=== PATIENT | male | born 1970 | race Caucasian/White ===

== ENCOUNTER 2016-10-29 22:23 | Inpatient (IN) | payer OTHER ==
[~2016-10-29] VITALS: Ht 172.7 cm; Wt 113.0 kg
[2016-10-29 23:45] LABS: EOSINOPHIL (%) 1.8 % (0-5); EOSINOPHIL COUNT 0.2 K/uL (0-0.3); IMMATURE GRANULOCYTE (%) 0.4 % (0.0-0.7); INSTRUMENT ABS NEUTROPHIL CT 6.2 K/uL; LYMPHOCYTE COUNT 2.4 K/uL (1.0-2.8); MCH 29.8 PG (29.0-34.0); MCV 87.6 FL (86-99); MEAN PLAT.VOLUME 10.4 uM^3 (9.0-12.4); MONOCYTE (%) 8.5 % (3-12); MONOCYTE COUNT 0.8 K/uL (0-0.8); NEUTROPHIL (%) 64.2 % (45-76); NEUTROPHIL COUNT 6.2 K/uL (1.8-6.4); PLATELET COUNT 274 K/uL (156-360); RBC DIS.WIDTH-CV 13.5 % (11.8-14.6); RED BLOOD COUNT 5.71 M/uL (4.00-5.50); WHITE BLOOD COUNT 9.7 K/uL (4.1-10.2)
[2016-10-29] MEDS ORDERED: LISINOPRIL10 MG PO (23:46)
[2016-10-29] MEDS ORDERED: ASPIRIN325 MG PO (23:47)
[2016-10-29] MEDS ORDERED: TOPAMAX200 MG PO (23:47)
[2016-10-29 23:54] LABS: CHLORIDE 105 mEq/L (99-109); POTASSIUM 4.1 mEq/L (3.7-5.4); SODIUM 137 mEq/L (136-147)
[2016-10-29 23:55] LABS: GLUCOSE 113 mg/dL (70-99)
[2016-10-29 23:56] LABS: INTER. NORMALIZED RATIO 1.1; PROTHROMBIN TIME 10.7 (9.2-11.2); PTT 28.2 (25-32)
[2016-10-29 23:57] LABS: ANION GAP 10 MEQ/L (2-14)
[2016-10-30] LABS: UREA NITROGEN (BUN) 18 mg/dL (9-23)
[2016-10-30 00:04] LABS: GFR ESTIMATE (CALCULATED) > 59 mL/min/
[2016-10-30] MEDS ORDERED: LITE COAT ASPI325 M1 PO (01:18)
[2016-10-30] MEDS ORDERED: B COMPLETE1 EACH PO (01:18)
[2016-10-30 02:56] LABS: TOTAL BILIRUBIN 0.8 mg/dL (0.0-1.0)
[2016-10-30 02:57] LABS: ALKALINE PHOSPHATASE 57 IU/L (3-129)
[2016-10-30 03:00] LABS: DIRECT BILIRUBIN 0.3 mg/dL (0.0-0.3)
[2016-10-30 03:01] LABS: CREATINE KINASE 109 IU/L (1-294)
[2016-10-30 03:19] LABS: ERTH.SED.RATE 22 MM/HR (0-15)
[2016-10-30 04:59] LABS: C-REACTIVE PROTEIN 25.5 MG/L (0-10); SAMPLE HEMOLYSIS CHECK 0; SAMPLE ICTERIC CHECK 0; SAMPLE LIPEMIA CHECK 0
[2016-10-30 05:20] VITALS: BP 148/74
[2016-10-30 07:52] VITALS: BP 132/79
[2016-10-30 12:48] LABS: HEMATOCRIT 46.5 % (38.0-50.0); MCH 29.4 PG (29.0-34.0); MCHC 33.1 G/DL (30.0-36.0); MCV 88.9 FL (86-99); MEAN PLAT.VOLUME 10.7 uM^3 (9.0-12.4); PLATELET COUNT 289 K/uL (156-360); RBC DIS.WIDTH-CV 13.4 % (11.8-14.6); RBC DIS.WIDTH-SD 43.7 % (39-53); RED BLOOD COUNT 5.23 M/uL (4.00-5.50); WHITE BLOOD COUNT 7.9 K/uL (4.1-10.2)
[2016-10-30 15:50] VITALS: BP 122/72
[2016-10-30 19:35] VITALS: BP 132/69
[2016-10-30 23:15] VITALS: BP 136/62
[2016-10-31 04:25] VITALS: BP 111/72
[2016-10-31 07:30] LABS: EOSINOPHIL (%) 5.8 % (0-5); EOSINOPHIL COUNT 0.5 K/uL (0-0.3); HEMATOCRIT 45.7 % (38.0-50.0); IMMATURE GRANULOCYTE (%) 0.1 % (0.0-0.7); INSTRUMENT ABS NEUTROPHIL CT 4.6 K/uL; LYMPHOCYTE COUNT 2.5 K/uL (1.0-2.8); MCH 30.7 PG (29.0-34.0); MCHC 34.1 G/DL (30.0-36.0); MONOCYTE COUNT 0.8 K/uL (0-0.8); NEUTROPHIL (%) 54.6 % (45-76); NEUTROPHIL COUNT 4.6 K/uL (1.8-6.4); PLATELET COUNT 269 K/uL (156-360); RBC DIS.WIDTH-CV 13.4 % (11.8-14.6); RBC DIS.WIDTH-SD 44.1 % (39-53); RED BLOOD COUNT 5.08 M/uL (4.00-5.50); WHITE BLOOD COUNT 8.4 K/uL (4.1-10.2)
[2016-10-31 08:00] VITALS: BP 122/78
[2016-10-31 08:00] LABS: ANION GAP 9 MEQ/L (2-14); CHLORIDE 101 MEQ/L (99-109); GFR ESTIMATE (CALCULATED) > 59 mL/min/; GLUCOSE 91 mg/dL (70-99); POTASSIUM 4.3 MEQ/L (3.7-5.4); SAMPLE HEMOLYSIS CHECK 0; SAMPLE ICTERIC CHECK 0; SAMPLE LIPEMIA CHECK 0; SODIUM 136 MEQ/L (136-147); UREA NITROGEN (BUN) 19 mg/dL (9-23)
[2016-10-31 18:05] VITALS: BP 123/59
[2016-11-01 00:40] VITALS: BP 125/68
[2016-11-01 08:00] VITALS: BP 123/72
[2016-11-01] MEDS ORDERED: KEFLEX500 MG PO (09:15)
[2016-11-01] MEDS ORDERED: XARELTO20 MG PO (09:15)
[2016-11-01] MEDS ORDERED: XARELTO15 MG PO (09:15)
[2016-11-01] MEDS ORDERED: HYDROCODON-ACE1 EAC9 PO (09:15)
== END 2016-11-01 14:34 | disposition home or self-care (01) | DRG 300 ==
LOC: EME 22:23 → 5EAST 10-30 02:17 → EDOF 10-30 02:17 → 5EAST 10-30 05:09
PROVIDERS: Emergency Medicine; Hospitalist
DX: I82.4Z1 Acute embolism and thrombosis of unspecified deep veins of right distal lower extremity (principal); L03.115 Cellulitis of right lower limb; S92.214D Nondisplaced fracture of cuboid bone of right foot, subsequent encounter for fracture with routine healing; S92.001D Unspecified fracture of right calcaneus, subsequent encounter for fracture with routine healing; M72.2 Plantar fascial fibromatosis; S96.911D Strain of unspecified muscle and tendon at ankle and foot level, right foot, subsequent encounter; M77.31 Calcaneal spur, right foot; S93.401D Sprain of unspecified ligament of right ankle, subsequent encounter; I10 Essential (primary) hypertension; E66.9 Obesity, unspecified; Z68.30 Body mass index [BMI] 30.0-30.9, adult; M17.11 Unilateral primary osteoarthritis, right knee; J45.909 Unspecified asthma, uncomplicated; R60.0 Localized edema; G43.909 Migraine, unspecified, not intractable, without status migrainosus
CPT/HCPCS: 70140; 73630; 73700; 73718; 80048; 80076; 82550; 83605; 85025; 85027; 85610; 85651; 85730; 86140; 87040; 93971; 99281; 99285; J0690; J1650; J2270; J2405; J7050